=== PATIENT | male | born 1975 | race Caucasian/White ===

== ENCOUNTER 2017-11-03 08:20 | Emergency (ER) | payer BC ==
[~2017-11-03] VITALS: Ht 177.8 cm; Wt 105.0 kg
[2017-11-03 08:28] VITALS: TEMP 36.9; Ht 177.8 cm; Wt 105.0 kg
[2017-11-03] MEDS ORDERED: RANITIDINE HCL 150 MG TAB PO ONE (08:45)
[2017-11-03] MEDS ORDERED: PRED20TA2 PO (08:45)
[2017-11-03] MEDS ORDERED: DIPHTHERIA/TETANUS/PERTUSSIS 0.5 ML SYR/VIAL IM. ONE (08:45)
[2017-11-03] MEDS ORDERED: EPP3/2 IM (09:07)
[2017-11-03 09:15] VITALS: BP 127/76; PULSE 91; O2SAT 95
--- NOTE | 2017-11-03 09:41 | EMERGENCY ROOM VISIT NOTE ---
ED Visit Note First contact with patient: 08:27 Chief Complaint: Left arm redness and swelling. History of Present Illness: Mr. Morris is a 42-year-old white male who ambulates into the ED complaining of left arm redness and swelling after a bee sting yesterday. Historically patient reports he has had previous similar reactions to bee stings. His last episode was 2003. He does carry an EpiPen. Patient reports yesterday approximately 5 PM, he was stung by a bee. At that time he did use his EpiPen and took 1 dose of Benadryl. As the evening progressed he noted some increasing swelling and redness over the posterior upper left arm and before bed he took a second dose of Benadryl. He comes in the day reporting that he has noted increasing redness and swelling and mild itching in the area. Currently he describes his pain as a throbbing pressure-like sensation. He rates his discomfort 5/10. His pain is nonradiating. His pain worsens slightly with touch. He has not identified any alleviating factors related to the pain. He has not taken additional medications for his symptoms prior to arrival at the hospital. He denies fevers, chills, sweats, other skin eruptions, other skin color changes , lip swelling, tongue swelling, airway swelling, voice changes, difficulty breathing, shortness of breath, wheezing, chest pain, decreased appetite, nausea /vomiting, left upper extremity weakness/numbness/tingling. Review of Systems: As noted above in history of present illness. 8 body systems were reviewed and found to be negative as noted above. Past Medical History: Kidney stones and unspecified ankle surgery. Current Medications: EpiPen. Allergies to Medications: Patient denies. Social History: She is currently employed; he feels safe in his home environment ; he denies tobacco use and admits to alcohol use. Physical Examination: Vital Signs: Date Time Temp Pulse Resp B/P (MAP) Pulse Ox O2 Delivery O2 Flow Rate FiO2 11/03/17 09:15 91 16 127/76 95 11/03/17 08:28 36.9 94 16 132/83 95 Room Air GENERAL: 42-year-old male in mild distress due to symptoms, nontoxic-appearing, afebrile and hemodynamically stable. NEUROLOGICAL: Awake, alert and oriented to person, place and time. Answering questions appropriately and following commands. Normal gait. Good hand eye coordination. No focal motor or sensory deficits. SKIN: Warm, dry and pink. Over the posterior aspect of the left upper arm patient has a welt/hive starting just inferior to the axillary area and extending down to the medial aspect of the forearm. The lesion is is mildly erythematous and slightly upraised. The lesion is minimally warm to palpation and does not appear cellulitic. There is no lymphangitis. No local lymphadenopathy. HEENT: Atraumatic and normocephalic. PERRLA. Sclera white and conjunctiva pink. No drainage from naris. No lip or oral swelling. Airway is patent. Pharynx is nonerythematous or edematous. Speech normal and clear. No auditory or ausculatory stridor. THORAX: Lungs sounds are clear to auscultation and equal bilaterally with symmetrical chest wall. No wheezing, rales or rhonchi. No increased respiratory effort or rate. ABDOMEN: Flat, soft and nontender. Positive bowel sounds in all quadrants. No guarding, rigidity or organomegaly. LEFT UPPER EXTREMITY: Soft tissue lesion as noted above under SKIN. No tenderness throughout the shoulder, elbow or forearm. Full range of motion of the shoulder, elbow and forearm. Throughout the extremity the skin is warm and pink and capillary refill was brisk. ED Course: Patient is assessed as noted above. Patient's medication list was reviewed. Patient was given 60 mg of prednisone by mouth, 50 mg of Benadryl by mouth, 150 mg of Zantac by mouth and an Adacel booster IM. Patient was reassessed. Patient was educated about today's findings and instructed on his treatment plan ; he verbalized understanding and agreement with this plan. Clinical Impression: Allergic reaction to bee stings. Disposition: Patient discharged to home in stable condition accompanied by his ; prior to departure he was reassessed and subjectively reported he was feeling slightly better. Plan: Patient was prescribed prednisone once a day for 4 additional days. Patient was encouraged to use 25-50 mg of Benadryl every 6 hours and 150 mg of Zantac every 12 hours until resolution of skin redness, skin swelling and itchy skin. Patient was also informed he could use ibuprofen or Tylenol as needed for pain every 6 hours and use ice on the area swelling for pain and comfort. Patient was encouraged to follow-up with his family physician for recheck in 2- 3 days. Patient was encouraged return the ED for worsening skin reaction, any sensations of lip tongue or airway swelling and any sensation of shortness of breath/wheezing or any new/concerning symptoms.
== END 2017-11-03 09:16 | disposition home or self-care (01) ==
LOC: C.EDB 08:22 → C.EDA 09:16
DX: T63.441A Toxic effect of venom of bees, accidental (unintentional), initial encounter (principal); Z87.442 Personal history of urinary calculi; Z98.890 Other specified postprocedural states; Z23 Encounter for immunization